=== PATIENT | male | born 1985 | race Caucasian/White ===

== ENCOUNTER → 2024-02-06 | Outpatient (CLI) | payer BC ==
--- NOTE | 2024-02-22 00:21 | CE ---
HOLTER MONITOR STUDY PERFORMED: 24-hour Holter monitor. FINDINGS: The patient was monitored for 24 hours. The baseline rhythm appeared to be sinus mechanism. Rare PACs and PVCs noted. No significant sinus pause or sinus arrest. No atrial fibrillation or atrial flutter noted. No diary was attached to the study. CONCLUSION: 1. This is a 24-hour Holter monitor. 2. The baseline rhythm appeared to be sinus mechanism. Rare PACs and PVCs noted. 3. No significant sinus pause or sinus arrest. 4. No atrial fibrillation or atrial flutter. MMODL / IJN: [id number] / MTDD
--- NOTE | 2024-02-24 16:52 | P.HOLTER ---
24-hour Holter monitor shows sinus mechanism heart racing from 54-118 beats a minute average 82 beats a minute Occasional PACs and PVCs No sustained or nonsustained arrhythmias and no bradycardia arrhythmias of any significance
== END | disposition home or self-care (01) ==
LOC: RADECHMAIN 07:07
PROVIDERS: ATTEND Family Medicine
DX: I49.3 Ventricular premature depolarization (principal); I49.1 Atrial premature depolarization; R07.9 Chest pain, unspecified
CPT/HCPCS: 93225; 93226